=== PATIENT | female | born 1995 | race Caucasian/White ===

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

== ENCOUNTER 2017-01-05 17:50 | Emergency (ER) | payer BC ==
[~2017-01-05] VITALS: Ht 167.6 cm; Wt 58.3 kg
[~2017-01-05 17:50] MED LIST: BCPILLS PO; SERT25TA PO
[2017-01-05 18:00] VITALS: TEMP 36.7; Ht 167.6 cm; Wt 58.3 kg
[2017-01-05 19:30] LABS: HEMATOCRIT 39.1 % (37-47); MEAN CELL VOLUME 81.8 fL (80-100); MEAN PLATELET VOLUME 9.7 fL (7.4-10.4); PLATELET COUNT 215 K/uL (130-400); RED BLOOD COUNT 4.78 M/uL (4.2-5.4); WHITE BLOOD COUNT 7.56 K/uL (4.8-10.8)
[2017-01-05 19:52] LABS: BUN/CREATININE RATIO 8.5 (10-20); CALCIUM 9.3 mg/dl (8.5-10.1); CREATININE 0.82 mg/dl (0.60-1.20); POTASSIUM 3.3 mmol/L (3.5-5.1)
[2017-01-05 19:54] LABS: COMPLETE YES; LYMPH ABS # 1.07 K/uL (1.2-3.4); LYMPHOCYTE % 14.2 %; NEUTROPHILS % 38.1 %; VARIANT LYM ABS # 3.21 K/uL; VARIANT LYMPHOCYTE % 42.4 %
[2017-01-05 19:55] LABS: ALB/GLOB RATIO 0.8 (0.9-2)
[2017-01-05 20:25] LABS: PREG INTERNAL NEGATIVE QC NEG CLEAR BACKGROUND; PREG INTERNAL POSITIVE QC POS CONTROL LINE
[2017-01-05] MEDS ORDERED: OPTIRAY 320 IV PRN (20:30)
--- NOTE | 2017-01-05 22:02 | EMERGENCY ROOM VISIT NOTE ---
History First contact with patient: 18:15 Chief Complaint: INFECTION Stated Complaint: LUMP IN NECK Nursing Triage Summary: "I just have a really weird lump sticking out of my neck on the right side. I have had it for about 5 days now. I saw [facility] and they told me to come here for a scan." History of Present Illness The patient is a 21 year old female who presents to the Emergency Room via private vehicle with complaints of "lump in neck". The patient states that she has been experiencing a lump in the right anterior neck just under the right jawline for about the past 5 days now. She states that she does not have any other symptoms and was seen today [facility] and was referred here to the emergency Department for a scan. She was also informed that it could be mumps. She again denies any other symptoms. She notes that the lump has been progressively getting larger and is very tender to palpation. She denies chance of . She is vaccinated. Review of Systems A complete 10-point Review of Systems was discussed with the patient, with pertinent positives and negatives listed in the History of Present Illness. All remaining Review of Systems questions can be considered negative unless otherwise specified. Past Medical/Surgical History No pertinent past medical history. Family History No pertinent family history. Social History Smoking Status: Never Smoker Occupation Status: [employer] student Current/Historical Medications Scheduled Control Pills ( Control Pills), 1 TAB PO DAILY Sertraline (Zoloft), 37.5 MG PO HS Allergies Coded Allergies: Azithromycin (Verified Allergy, Unknown, tachycardia,heart palpitation, ) Physical Exam Vital Signs Date Time Temp Pulse Resp B/P Pulse Ox O2 Delivery O2 Flow Rate FiO2 01/05/17 22:10 64 18 121/78 99 01/05/17 20:13 74 18 124/70 98 Room Air 01/05/17 18:00 36.7 88 16 121/84 98 Room Air Physical Exam VITAL SIGNS - Vital signs and nursing notes were reviewed. Patient is afebrile , normotensive, non-tachycardic and is saturating well on room air 98%. GENERAL -21-year-old female appearing her stated age who is in no acute distress. Communicates well with provider and answers questions appropriately. SKIN - Without rashes. No petechial rashes. There is a tender 2 cm x 2 cm nonfluctuant nodule palpated just under the right angle of the mandible. This is consistent with a lymph node. HEAD - NC/AT. EYES - PERRL with EOMI bilaterally. Sclera anicteric. Palpebral conjunctiva pink and moist with no injection noted. EARS - No deformities of external structures noted on gross examination bilaterally. No pain elicited with palpation of the tragus bilaterally. External auditory canals without discharge or otorrhea. Tympanic membranes pearly campbell without retraction or bulging. No fluid or purulent material visualized behind the TM. Handle of malleus, umbo, cone of light, pars tensa/ flaccid all easily visualized. NOSE - Midline and without cyanosis. No epistaxis or purulent drainage noted. Septum midline without deviation or septal hematoma noted. MOUTH/OROPHARYNX - Without perioral cyanosis. Buccal mucosa pink and moist and without leukoplakia. Tongue midline with equal elevation of palate bilaterally. No tonsillar hypertrophy, erythema, or exudates noted. Good dentition noted. NECK - Neck with FROM. Supple to palpation. There is anterior and posterior cervical lymphadenopathy noted. No nuchal rigidity. LUNGS - Chest wall symmetric without accessory muscle use, intercostals retractions, or central cyanosis. Normal vesicular breath sounds CTA B/L. No wheezes, rales, or rhonchi appreciated. CARDIAC - RRR with S1/S2. No murmur, rubs, or gallops appreciated. ABDOMEN - Abdominal contour without pulsations or visible masses. BS normoactive all four quadrants. No tenderness, palpable masses, hepatosplenomegaly, or ascites noted. EXTREMITIES - No clubbing or peripheral cyanosis. No pretibial edema present. +5 /5 strength noted in UE/LE bilaterally. NEUROLOGIC - Cranial nerves II through XII grossly intact. PSYCH - Pt is very pleasant and interacts well with examiner. Medical Decision & Procedures ER Provider Diagnostic Interpretation: CT SCAN OF THE NECK WITH IV CONTRAST CLINICAL HISTORY: Right-sided neck swelling. COMPARISON STUDY: No priors. TECHNIQUE: Following the IV administration of 93 cc of Optiray 320, CT scan of the soft tissues of the neck was performed from the skull base to the upper chest. Images are reviewed in the axial, sagittal, and coronal planes. IV contrast was administered without complication. CT DOSE: 241.29 mGy.cm FINDINGS: Pharynx: The nasopharynx, oropharynx, and laryngeal pharynx are normal in appearance. The pharyngeal airway is widely patent. There is no evidence of mass lesion. The vocal cords are symmetric. The parapharyngeal fat is well maintained. The prevertebral/retropharyngeal soft tissues are within normal limits. The epiglottis is normal. Lymphadenopathy: There are numerous enlarged bilateral cervical and supraclavicular lymph nodes. This corresponds to the finding of palpable concern, and the right semitubular lymph node deep to the marker measures 2.2 x 1.4 cm. There are also mildly enlarged lymph nodes seen in the superior mediastinum. Thyroid: Normal in size and attenuation. Salivary glands: The parotid and submandibular glands are within normal limits. Brain parenchyma: The visualized brain parenchyma at the skull base is normal in appearance. Vascular structures: The internal carotid arteries and jugular veins are widely patent bilaterally. Skeletal structures: Imaged portions of the calvarium at the skull base are within normal limits. The cervical spine appears intact. Sinuses and mastoids: Mild nodular mucosal thickening is seen within the maxillary antra. The mastoid air cells are well pneumatized. Lung apices: Visualized apical lung parenchyma is clear. IMPRESSION: 1. There is bilateral cervical and supraclavicular lymphadenopathy, and this corresponds to the finding of palpable concern. 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 A lymphoproliferative disorder is considered less likely but is the top differential consideration. Clinical correlation will be required and clinical follow-up to resolution is recommended. 2. The pharyngeal soft tissues are normal in appearance. Electronically signed by: Chito Guevara M.D. 01/05/2017 8:28 PM Dictated Date/Time: 01/05/2017 8:21 PM Laboratory Results 01/05/17 19:04 Red Blood Count 4.78, Mean Corpuscular Volume 81.8, Mean Corpuscular Hemoglobin 27.0, Mean Corpuscular Hemoglobin Concent 33.0, Mean Platelet Volume 9.7 01/05/17 19:04 Test 01/05/17 00:00 01/05/17 19:04 01/05/17 19:17 White Blood Count 7.56 K/uL (4.8-10.8) Red Blood Count 4.78 M/uL (4.2-5.4) Hemoglobin 12.9 g/dL (12.0-16.0) Hematocrit 39.1 % (37-47) Mean Corpuscular Volume 81.8 fL (80-100) Mean Corpuscular Hemoglobin 27.0 pg (25-34) Mean Corpuscular Hemoglobin Concent 33.0 g/dl (32-36) Platelet Count 215 K/uL (130-400) Mean Platelet Volume 9.7 fL (7.4-10.4) RDW Standard Deviation 43.3 fL (36.4-46.3) RDW Coefficient of Variation 14.5 % (11.5-14.5) Neutrophils % (Manual) 38.1 % Lymphocytes % (Manual) 14.2 % Variant Lymphocytes % (manual) 42.4 % Monocytes % (Manual) 5.3 % Neutrophils # (Manual) 2.88 K/uL (1.4-6.5) Total Absolute Neutrophils 2.88 K/uL (1.4-6.5) Lymphocytes # (Manual) 1.07 K/uL (1.2-3.4) Absolute Variant Lymphocytes 3.21 K/uL Total Absolute Lymphocytes 4.28 K/uL (1.2-3.4) Monocytes # (Manual) 0.40 K/uL (0.11-0.59) Red Blood Cell Morphology Unremarkable Anion Gap 5.0 mmol/L (3-11) Est Creatinine Clear Calc Drug Dose 101.6 ml/min Estimated GFR () 120.2 Estimated GFR (Non- 103.7 BUN/Creatinine Ratio 8.5 (10-20) Calcium Level 9.3 mg/dl (8.5-10.1) Total Bilirubin 0.4 mg/dl (0.2-1) Aspartate Amino Transf (AST/SGOT) 31 U/L (15-37) Alanine Aminotransferase (ALT/SGPT) 40 U/L (12-78) Alkaline Phosphatase 100 U/L (45-117) Total Protein 8.4 gm/dl (6.4-8.2) Albumin 3.8 gm/dl (3.4-5.0) Globulin 4.6 gm/dl (2.5-4.0) Albumin/Globulin Ratio 0.8 (0.9-2) Human Chorionic Gonadotropin, Qual NEG (NEG) Monoscreen POS (NEG) Influenza Type A Antigen Neg for Influ A (NEG) Influenza Type B Antigen Neg for Influ B (NEG) Medical Decision The patient was seen and evaluated as above. She was referred here by sarah beth blount and according to triage notes she is here for a scan. She presents with a painful swelling on the right side of the anterior superior neck. 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 This was to provide infection control. Although the mumps is not the top differential diagnoses at this time at this time I do find it appropriate to treat this as if it is until proven otherwise. IV access was initiated and the above workup was performed. Because it was recommended she have a scan, and she has no other symptoms other than this painful swelling of the right anterior neck as well as history of abscess in this region infection I do find it appropriate to obtain a CT scan of the neck with IV contrast. She was educated upon benefit versus risk. The decision was made to scan. Scan results as above. At the time that I received the results of the scan, I did find that she was also mono positive. This does fit with the swelling and there is also posterior cervical lymphadenopathy. I did initiate mumps testing prior to the mono diagnosis in the event that all other tests were negative and for preventative reasons. Patient was informed that she will be contacted regarding the mumps status. I this time do not suspect mumps, in the setting of a mono diagnosis. Her CBC does not reveal any concerning leukocytosis or anemia. There is positive total absolute lymphocytes , and the Monospot was positive. Her total protein is elevated 8.4, globulin is 4.6 and albumin is 0.8. The total protein elevation is only 0.2 higher than the normal high range. [place] screen was palliative, influenza was negative. Patient was informed that she is to follow up regarding this diagnosis, and for lymph node resolution as there are other differential diagnoses possible if they do not resolve. She was educated upon management of the mononucleosis, educated upon worrisome symptoms which to return, had questions prior to discharge and was discharged home in good condition. She is to follow-up with [facility] is her family doctor as soon as possible. In the evaluation and treatment of this patient the following differential diagnoses were entertained: Mononucleosis, influenza, strep pharyngitis, lymphoproliferative disorder, mumps, thyroglossal duct cyst, among others. Impression Primary Impression: Mononucleosis Additional Impressions: Hypokalemia Lymph node enlargement Departure Information Dispostion Home / Self-Care Condition GOOD Referrals [facility] (PCP) Patient Instructions ED Mononucleosis, Hypokalemia Sindi Nunez [facility] Additional Instructions You were seen in emergency departments for the painful lump on the side of your neck. The CT scan shows that this is a lymph node. This is most certainly caused by mononucleosis, however it is recommended that you follow-up until this resolves. There are other potential causes but at this time mononucleosis is the most likely. Although initially discuss the possibility of mumps, because you are found to be mono positive and the CT scan does not reveal abscess in the neck or any other concern I do not believe that you need to be in quarantine. Please call [facility] first thing tomorrow morning to schedule follow-up from today's visit. Please review attached handout for mono. Your potassium was low. Please eat foods high in potassium. Please have this repeated with her family doctor. Please return to the emergency department with any new/concerning symptoms. Problem Qualifiers
[2017-01-05 22:10] VITALS: BP 121/78; PULSE 64; O2SAT 99
--- NOTE | 2017-01-06 09:26 | DIAGNOSTIC IMAGING REPORT ---
CT SCAN OF THE NECK WITH IV CONTRAST CLINICAL HISTORY: Right-sided neck swelling. COMPARISON STUDY: No priors. TECHNIQUE: Following the IV administration of 93 cc of Optiray 320, CT scan of the soft tissues of the neck was performed from the skull base to the upper chest. Images are reviewed in the axial, sagittal, and coronal planes. IV contrast was administered without complication. CT DOSE: 241.29 mGy.cm FINDINGS: Pharynx: The nasopharynx, oropharynx, and laryngeal pharynx are normal in appearance. The pharyngeal airway is widely patent. There is no evidence of mass lesion. The vocal cords are symmetric. The parapharyngeal fat is well maintained. The prevertebral/retropharyngeal soft tissues are within normal limits. The epiglottis is normal. Lymphadenopathy: There are numerous enlarged bilateral cervical and supraclavicular lymph nodes. This corresponds to the finding of palpable concern, and the right semitubular lymph node deep to the marker measures 2.2 x 1.4 cm. There are also mildly enlarged lymph nodes seen in the superior mediastinum. Thyroid: Normal in size and attenuation. Salivary glands: The parotid and submandibular glands are within normal limits. Brain parenchyma: The visualized brain parenchyma at the skull base is normal in appearance. Vascular structures: The internal carotid arteries and jugular veins are widely patent bilaterally. Skeletal structures: Imaged portions of the calvarium at the skull base are within normal limits. The cervical spine appears intact. Sinuses and mastoids: Mild nodular mucosal thickening is seen within the maxillary antra. The mastoid air cells are well pneumatized. Lung apices: Visualized apical lung parenchyma is clear. IMPRESSION: 1. There is bilateral cervical and supraclavicular lymphadenopathy, and this corresponds to the finding of palpable concern. This is nonspecific, and is likely on a reactive basis or district representative of an infectious process such as mononucleosis in this age group. A lymphoproliferative disorder is considered less likely but is the top differential consideration. Clinical correlation will be required and clinical follow-up to resolution is recommended. 2. The pharyngeal soft tissues are normal in appearance. Electronically signed by: Chito Guevara M.D. 01/05/2017 8:28 PM Dictated Date/Time: 01/05/2017 8:21 PM
== END 2017-01-05 22:10 | disposition home or self-care (01) ==
LOC: C.EDB 17:51 → C.EDC 22:10
DX: B27.90 Infectious mononucleosis, unspecified without complication (principal); E87.6 Hypokalemia; R59.9 Enlarged lymph nodes, unspecified; Z79.899 Other long term (current) drug therapy; Z88.1 Allergy status to other antibiotic agents